=== PATIENT | female | born 1980 | race Caucasian/White ===

== ENCOUNTER 2019-08-21 09:52 | Inpatient (IN) ==
[2019-08-21] MEDS ORDERED: CeFAZolin Syr 2,000MG/20 ML 2,000 MG/20 ML SYRINGE IVPB ONE (10:32)
[2019-08-21] MEDS ORDERED: *HR* Midazolam HCl 2 MG/2 ML VIAL ONE (10:37)
[2019-08-21] MEDS ORDERED: *HR* Propofol 200 MG/20 ML VIAL IVP ONE (10:37)
[2019-08-21] MEDS ORDERED: *HR* FentaNYL (PF) 100 MCG/2 ML VIAL ONE (10:37)
[2019-08-21] MEDS ORDERED: Ringers Solution, Lactated 1,000 ML IVC SCH (10:45)
[2019-08-21] MEDS ORDERED: Ondansetron 4 MG/2 ML VIAL IVP ONE (11:13)
[2019-08-21] MEDS ORDERED: *HR* OxyCODONE Immed Rel 5 MG TABLET PO PRN (11:13)
[2019-08-21] MEDS ORDERED: *HR* Midazolam HCl 2 MG/2 ML VIAL IVP PRN (11:13)
[2019-08-21] MEDS ORDERED: Acetaminophen IV 1,000 MG/100 ML INFUS..BTL IVPB ONE (11:13)
[2019-08-21] MEDS ORDERED: Morphine Sulfate 2 MG/ML SYRINGE IVP PRN (11:13)
[2019-08-21] MEDS ORDERED: Ketorolac 30 MG/ML VIAL IVP ONE (11:13)
[2019-08-21] MEDS ORDERED: *HR* Promethazine 25 MG/ML VIAL IVP PRN (11:13)
[2019-08-21] MEDS ORDERED: Ketamine *HR* 500 MG/10 ML MDV ONE (12:55)
[2019-08-21] MEDS ORDERED: *HR* Magnesium Sulfate 1 GM/2 ML VIAL ONE (13:56)
[2019-08-21] MEDS ORDERED: Dexamethasone 4 MG/ML VIAL ONE (14:10)
[2019-08-21] MEDS ORDERED: Lidocaine -MPF 2% 2 ML VIAL ONE (14:10)
[2019-08-21] MEDS ORDERED: Ondansetron 4 MG/2 ML VIAL ONE (14:10)
[2019-08-21] MEDS ORDERED: *HR* Rocuronium Bromide 50 MG/5 ML VIAL ONE (14:10)
[2019-08-21] MEDS ORDERED: Ketorolac 30 MG/ML VIAL ONE (14:11)
[2019-08-21] MEDS ORDERED: EPHEDrine 50 MG/ML VIAL ONE (14:23)
[2019-08-21] MEDS ORDERED: *HR* HYDROMORPHONE 2 MG/ML VIAL ONE (14:48)
[2019-08-21] MEDS ORDERED: Naloxone 0.4 MG/ML INJ IVP PRN (17:35)
[2019-08-21] MEDS ORDERED: Ondansetron 4 MG/2 ML VIAL IVP PRN (17:35)
[2019-08-21] MEDS ORDERED: Sennosides 8.6 MG TABLET PO PRN (17:35)
[2019-08-21] MEDS ORDERED: Famotidine 20 MG/2 ML VIAL IVP SCH (18:00)
[2019-08-21] MEDS: Ketorolac 30 MG/ML VIAL IVP SCH ×2 (18:55→23:33)
[2019-08-21] MEDS ORDERED: cefTRIAXone 1,000 MG in Water for inj. (sterile) 10 ML IVP SCH (19:00)
[2019-08-21] MEDS ORDERED: Metoclopramide 10 MG/2 ML VIAL IVP PRN (19:07)
[2019-08-21] MEDS: Ringers Solution, Lactated 1,000 ML IVC SCH (19:12)
[2019-08-21] MEDS: cefTRIAXone 2,000 MG in Water for inj. (sterile) 20 ML IVP SCH (19:44)
[2019-08-21] MEDS: *HR* OxyCODONE/APAP 5/325 TABLET PO PRN (20:38)
[2019-08-21] MEDS: MetroNIDAZOLE 250 MG/50 ML 250 MG/50 ML BAG IVPB SCH (23:41)
[2019-08-22] MEDS: *HR* OxyCODONE/APAP 5/325 TABLET PO PRN ×4 (03:24→21:25)
[2019-08-22] MEDS: Ringers Solution, Lactated 1,000 ML IVC SCH ×3 (03:28→20:20)
[2019-08-22] MEDS: Ketorolac 30 MG/ML VIAL IVP SCH ×2 (07:41→15:59)
[2019-08-22] MEDS: MetroNIDAZOLE 250 MG/50 ML 250 MG/50 ML BAG IVPB SCH ×2 (07:42→12:18)
[2019-08-22 07:45] LABS: Basophils % 0.1 %; Hematocrit 32.2 % (35.3-44.9); Hemoglobin 9.9 g/dL (11.5-15.4); Immature Granulocytes % 0.3 % (0-4); Lymphocytes # 0.4 K/mcL (0.6-4.6); Lymphocytes % 4.5 %; Mean Corpuscular HGB Conc 30.7 g/dL (31.6-35.5); Mean Corpuscular Hemoglobin 25.3 pg (28.0-33.3); Mean Corpuscular Volume 82.4 fL (83.0-100.0); Mean Platelet Volume 10.3 fL (9.4-12.4); Monocytes # 0.7 K/mcL (0.0-1.3); Monocytes % 7.2 %; Neutrophils # 8.7 K/mcL (1.6-8.9); Platelet Count 287 K/mcL (140-400); Red Blood Count 3.91 M/mcL (3.82-4.97); Red Cell Distribution Width 14.9 % (11.5-14.5); Segmented Neutrophils % 87.9 %; White Blood Count 9.9 K/mcL (4.3-11.1)
[2019-08-22 08:02] LABS: eGFR For African Americans > 60 (> 60); eGFR For Non-African Americans > 60 (> 60)
[2019-08-22] MEDS: cefTRIAXone 2,000 MG in Water for inj. (sterile) 20 ML IVP SCH (20:20)
[2019-08-23] MEDS: Ketorolac 30 MG/ML VIAL IVP SCH ×2 (00:34→07:54)
[2019-08-23] MEDS: MetroNIDAZOLE 250 MG/50 ML 250 MG/50 ML BAG IVPB SCH ×2 (00:34→07:55)
[2019-08-23] MEDS: *HR* OxyCODONE/APAP 5/325 TABLET PO PRN (07:09)
[2019-08-23 08:04] VITALS: BP 102/72
[2019-08-23] MEDS: Ringers Solution, Lactated 1,000 ML IVC SCH (09:29)
== END 2019-08-23 10:39 | disposition home or self-care (01) | DRG 743 ==
LOC: SAMDAY 09:52 → 1NENUOBS 17:42
PROVIDERS: ADMIT Obstetrics & Gynecology; ATTEND Obstetrics & Gynecology